=== PATIENT | male | born 1995 | race Caucasian/White ===

== ENCOUNTER → 2023-06-11 | Outpatient (CLI) | payer OTHER | END | disposition home or self-care (01) | LOC: RAH 11:08 | PROVIDERS: ATTEND Physical Medicine & Rehabilitation | DX: M21.70 Unequal limb length (acquired), unspecified site (principal); M54.51 Vertebrogenic low back pain; M41.9 Scoliosis, unspecified; M41.84 Other forms of scoliosis, thoracic region | CPT/HCPCS: 72081; 72100 ==